=== PATIENT | female | born 1940 | race Hispanic/Latino ===

== ENCOUNTER 2020-06-26 15:27 | Emergency (ER) | payer OTHER ==
[2020-06-26 16:23] LABS: CREATININE 1.1 mg/dL (0.5-1.5); POTASSIUM 3.5 mmol/L (3.5-5.1)
[2020-06-26] MEDS ORDERED: ENALAPRILAT DIHYDRATE 1.25MG/ML 1ML VIAL IV ONE (16:54)
== END 2020-06-26 20:19 | disposition home or self-care (01) ==
LOC: EDH 15:27
DX: E13.641 Other specified diabetes mellitus with hypoglycemia with coma (principal); I10 Essential (primary) hypertension; E78.00 Pure hypercholesterolemia, unspecified
CPT/HCPCS: 36415; 80048; 82948 ×2; 96374; 99285; J3490